=== PATIENT | male | born 1965 | race Two or more races ===

== ENCOUNTER 2016-08-15 20:10 | Emergency (ER) | payer OTHER ==
[2016-08-15 20:24] VITALS: O2SAT 99
--- NOTE | 2016-08-15 20:24 | CPEKG ---
Heart Rate: 85 RR Interval: 706 P-R Interval: 144 QRSD Interval: 86 QT Interval: 364 QTC Interval: 433 P [place]: 48 QRS [place]: -8 T Wave [place]: 13 EKG Severity - NORMAL ECG - EKG Impression: SINUS RHYTHM Electronically Signed By: Jasmin Guallpa 15-Aug-2016 21:56:12
[2016-08-15] MEDS ORDERED: NS 1,000 ML IV ONE (20:27)
--- NOTE | 2016-08-15 20:32 | EDPHY ---
H & P Time Seen by Provider: 08/15/16 20:20 HPI/ROS: CHIEF COMPLAINT: Syncope HISTORY OF PRESENT ILLNESS: 50-year-old male presents after a syncopal episode. 4 days ago he developed a sore throat and nasal congestion. Associated with fatigue. Today he went to work and forgot to eat all day. This evening he went to a restaurant and was about to sit down when he began feeling very hot and lightheaded. He walked outside and then had a witnessed syncopal episode. He now feels better. He did not injure himself. No shortness of breath or chest pain. REVIEW OF SYSTEMS: Constitutional: No fever, no chills Eyes: No visual changes ENT: No sore throat Respiratory: No cough, no shortness of breath Cardiac: No chest pain Gastrointestinal: No nausea, no vomiting, no abdominal pain Genitourinary: No hematuria, no dysuria Musculoskeletal: No leg pain or swelling Skin: No rash Neurological: No headache, no numbness, no weakness Psychiatric: No depression Past Medical/Surgical History: Denies Social History: No recent alcohol Smoking Status: Never smoked Physical Exam: General Appearance: Alert, eyes closed Eyes: Pupils equal and round, no conjunctival pallor or injection ENT, Mouth: Mucous membranes moist Neck: Normal inspection Respiratory: Lungs are clear to auscultation Cardiovascular: Regular rate and rhythm Gastrointestinal: Abdomen is soft and nontender Neurological: Alert, oriented x3, cranial nerves II through XII intact, motor 5 /5, sensory intact to light touch Skin: Warm and dry, no rash Extremities: Nontender, no pedal edema Psychiatric: flat affect Constitutional: Initial Vital Signs Temperature (C) 36.7 C 08/15/16 20:19 Heart Rate 82 08/15/16 20:19 Respiratory Rate 16 08/15/16 20:19 Blood Pressure 138/72 H 08/15/16 20:19 O2 Sat (%) 92 08/15/16 20:19 O2 Delivery Mode Room Air O2 (L/minute) 2 Allergies/Adverse Reactions: Sulfa (Sulfonamide Antibiotics) Allergy (Verified 08/15/16 20:23) Home Medications: Medication Instructions Recorded Humira 08/15/16 Medical Decision Making - Diagnostics EKG Interpretation: EKG interpreted by me reveals normal sinus rhythm, rate 85, no ST or T segment changes. ED Course/Re-evaluation: IV normal saline 1 L given. Oral fluids and crackers given also. The patient felt much better after food and fluids. He was able to just walk with a steady gait and was not dizzy. teletypesetter monitor revealed normal sinus rhythm throughout. I do not suspect dysrhythmia in this patient. Most likely the syncopal episode was related to decreased oral intake and recent viral syndrome. Safe and stable for discharge. He will increase his fluid intake. Differential Diagnosis: Differential diagnosis includes though is not limited to cardiac dysrhythmia, CVA, TIA, GI bleed, sepsis, hypoglycemia. - Data Points Laboratory Results: Laboratory Results 08/15/16 20:27 08/15/16 20:27 Medications Given: Discontinued Medications Sodium Chloride (Ns) 1,000 mls @ 0 mls/hr IV ONCE ONE PRN Reason: Wide Open Stop: 08/15/16 20:28 Last Admin: 08/15/16 20:34 Dose: 1,000 mls Departure - Departure Disposition: Home, Routine, Self-Care Clinical Impression: Syncope Qualifiers: Syncope type: vasovagal syncope Qualified Code(s): R55 - Syncope and collapse Condition: Good Instructions: Syncope (ED) Referrals: Karyna Springer MD [Medical Doctor] - As per Instructions
[2016-08-15 20:37] LABS: ADD DIFF? YES; ADD MORPH? NO; ADD SCAN? NO; ATYPICAL LYMPHOCYTE FLAG 40 (0-99); FRAGMENT RBC FLAG 0 (0-99); HEMATOCRIT 44.9 % (40.0-51.0); HEMOGLOBIN 15.5 g/dL (13.7-17.5); LEFT SHIFT FLG 0 (0-99); LIPEMIA HEMOLYSIS FLAG 90 (0-99); MEAN CELL HEMOGLOBIN 30.8 pg (27.9-34.1); MEAN CELL HEMOGLOBIN CONCENTR. 34.5 g/dL (32.4-36.7); MEAN CELL VOLUME 89.1 fL (81.5-99.8); MEAN PLATELET VOLUME 9.9 fL (8.7-11.7); PLATELET CLUMPS FLAG 0 (0-99); PLATELET COUNT 247 10^3/uL (150-400); RED BLOOD CELL COUNT 5.04 10^6/uL (4.40-6.38); RED CELL DISTRIBUTION WIDTH 12.8 % (11.5-15.2)
[2016-08-15 20:48] LABS: ANION GAP 13 mEq/L (8-16); CALCIUM 9.1 mg/dL (8.5-10.4); CARBON DIOXIDE 22 mEq/l (22-31); CHLORIDE 103 mEq/L (97-110); CREATININE 0.8 mg/dL (0.7-1.3); GLOMERULAR FILTRATION RATE > 60; GLUCOSE 112 mg/dL (70-100); POTASSIUM 3.8 mEq/L (3.5-5.2); SODIUM 138 mEq/L (134-144)
[2016-08-15 21:08] LABS: PLATELET ESTIMATE ADEQUATE (ADEQ)
[2016-08-15 21:32] VITALS: BP 137/76; PULSE 94; RESP 20; TEMP 98.4
== END 2016-08-15 21:36 | disposition home or self-care (01) ==
DX: R55 Syncope and collapse (principal)